=== PATIENT | male | born 1955 | race African-American/Black ===

== ENCOUNTER 2021-02-17 14:40 | Emergency (ER) | payer BC, OTHER ==
[~2021-02-17] VITALS: Ht 170.2 cm; Wt 88.5 kg
[2021-02-17 20:36] VITALS: BP 138/74
== END 2021-02-17 20:40 | disposition home or self-care (01) ==
LOC: ER 14:40
DX: H43.391 Other vitreous opacities, right eye (principal); I10 Essential (primary) hypertension; Z86.73 Personal history of transient ischemic attack (TIA), and cerebral infarction without residual deficits
CPT/HCPCS: 70450